=== PATIENT | female | born 1945 | race Caucasian/White ===

== ENCOUNTER 2018-05-15 17:54 | Emergency (ER) | payer MEDICARE, OTHER, MEDICAID ==
[2018-05-15 18:02] VITALS: BP 189/103
--- NOTE | 2018-05-15 18:45 | EDM.PDOC ---
ED HPI GENERAL MEDICAL PROBLEM - General Chief Complaint: General Stated Complaint: ILLNESS NORTH TO ER Time Seen by Provider: 05/15/18 18:20 Source of Information: Reports: Patient, EMS, Family, Intermediate Records History Limitations: Reports: Altered Mental Status - History of Present Illness INITIAL COMMENTS - FREE TEXT/NARRATIVE: 72-year-old female who is residing at [facility] receiving chemotherapy for metastatic lung cancer was found with marked decreased responsiveness this afternoon. They were unable to wake her so called the ambulance. EMS did get a response to pain, and when she arrived to the emergency room she was aware of her surroundings but still displaying disinterest in her surroundings. I sat at her bedside and talked with her, and she opened her eyes and started visiting with me. There seemed to be a strong psychological overlay to her symptoms. She was not complaining of any headache, shortness of breath, illness, weakness or other concern. She said she was just "tired". Glucose was checked by EMS and was normal. Onset: Unknown/Unsure Associated Symptoms: Reports: Weakness. Denies: Chest Pain, Cough, Fever/Chills , Nausea/Vomiting, Shortness of Breath Denies Pain Score (Numeric/FACES): 0 - Related Data Allergies Allergy/AdvReac Type Severity Reaction Status Date / Time No Known Allergies Allergy Verified 05/15/18 18:13 Home Meds: Home Meds Aspirin 81 mg PO DAILY 05/09/16 [History] Calcium Carbonate/Vitamin D3 [Calcium Carbonate/Vitamin D 1250 MG-200 Unit] 1 tab PO TID 05/09/16 [History] Cyanocobalamin (Vitamin B-12) [B-12] 1,000 mcg PO DAILY 05/09/16 [History] Metoprolol Tartrate 100 mg PO BID 05/09/16 [History] [place]-3/DHA/Epa/Fish Oil [[place] 3 500 Softgel] 2 cap PO DAILY 05/09/16 [History] Simvastatin 20 mg PO DAILY 05/09/16 [History] amLODIPine Besylate [Amlodipine Besylate] 10 mg PO DAILY 05/09/16 [History] Sulfamethoxazole/Trimethoprim [Sulfamethoxazole-Tmp Ds Tablet] 1 tab PO BID 11/22 [History] Past Medical History HEENT History: Reports: Impaired Vision Cardiovascular History: Reports: High Cholesterol, Hypertension Gastrointestinal History: Reports: Other (See Below) Other Gastrointestinal History: reflux Genitourinary History: Reports: Retention, Urinary, Urinary Incontinence, UTI, Recurrent 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: Dysfunctional Uterine Bleeding, Musculoskeletal History: Reports: Other (See Below) Other Musculoskeletal History: right shoulder chronic pain Psychiatric History: Reports: Dementia, Depression Endocrine/Metabolic History: Reports: Diabetes, Type II Oncologic (Cancer) History: Reports: Lung - Infectious Disease History Infectious Disease History: Reports: Chicken Pox, Measles, Pertussis (Whooping Cough) - Past Surgical History HEENT Surgical History: Reports: Cataract Surgery Respiratory Surgical History: Reports: Other (See Below) Other Respiratory Surgeries/Procedures: small cell lung CA Social & Family History - Tobacco Use Smoking Status *Q: Former Smoker Years of Tobacco use: 55 Packs/Tins Daily: 2 Used Tobacco, but Quit: Yes Month/Year Tobacco Last Used: 06/16/2016 Second Hand Smoke Exposure: No - Caffeine Use Caffeine Use: Reports: Coffee - Alcohol Use Days Per Week of Alcohol Use: 0 - Recreational Drug Use Recreational Drug Use: No ED ROS GENERAL - Review of Systems Review Of Systems: See Below Constitutional: Denies: Fever, Chills HEENT: Reports: No Symptoms Respiratory: Denies: Shortness of Breath, Cough Cardiovascular: Denies: Chest Pain GI/Abdominal: Denies: Abdominal Pain, Nausea, Vomiting Skin: Denies: Rash Neurological: Denies: Confusion, Headache Psychiatric: Reports: Other (Very flat affect, seems depressed) ED EXAM, GENERAL - Physical Exam Exam: See Below Exam Limited By: No Limitations General Appearance: Alert, No Apparent Distress Eye Exam: Bilateral Eye: EOMI Throat/Mouth: Normal Inspection Head: Atraumatic, Normocephalic Neck: Normal Inspection Respiratory/Chest: No Respiratory Distress, Lungs Clear Cardiovascular: Regular Rate, Rhythm GI/Abdominal: Soft, Non-Tender Extremities: No: Pedal Edema Neurological: Alert (Patient became alert while I was talking to her) Psychiatric: Depressed Mood, Flat Affect Skin Exam: Warm, Dry Course - Vital Signs Last Recorded V/S: Last Vital Signs Temp 98.1 F 05/15/18 18:12 Pulse 80 05/15/18 18:12 Resp 12 05/15/18 18:12 BP 189/103 H 05/15/18 18:12 Pulse Ox 96 05/15/18 18:12 - Orders/Labs/Meds Orders: Active Orders 24 hr Category Date Time Status Head wo Cont [CT] Stat Exams 05/15/18 18:21 Taken - Re-Assessments/Exams Free Text/Narrative Re-Assessment/Exam: 05/15/18 18:46 The family arrived and she saw her from across the emergency room and lifted her hand and pointed and said "there is my " she wanted to talk to him before any tests were done. I talked with the family after they left the room and they said they thought she "seemed fine, maybe just needed a bloody Niesha". They did agree to a head CT. If this is negative we'll [facility]. 05/15/18 18:[address] was negative for acute findings. The patient moved from the cot to the CT bed with just a small amount of assistance. [facility] was [facility]. She can return if she develops a fever or other symptoms but the family is comfortable with this plan. Departure - Departure Time of Disposition: 19:19 Disposition: DC/Tfer to [facility] Condition: Good Clinical Impression: Mental status, decreased Lung cancer Qualifiers: Laterality: unspecified laterality Lung location: unspecified part of lung Qualified Code(s): C34.90 - Malignant neoplasm of unspecified part of unspecified bronchus or lung - Discharge Information Instructions: Lung Cancer Referrals: PCP,None [Primary Care Provider] - Forms: ED Department Discharge Care Plan Goals: Continue current medications and activity as tolerated. Return if other concerns develop such as fever or shortness of breath. - My Orders Last 24 Hours: My Active Orders 05/15/18 18:21 Head wo Cont [CT] Stat - Assessment/Plan Last 24 Hours: My Active Orders 05/15/18 18:21 Head wo Cont [CT] Stat
== END 2018-05-15 19:19 ==
LOC: JP.ED 17:54
DX: C34.90 Malignant neoplasm of unspecified part of unspecified bronchus or lung (principal); F99 Mental disorder, not otherwise specified; E78.00 Pure hypercholesterolemia, unspecified; I10 Essential (primary) hypertension; Z79.82 Long term (current) use of aspirin; Z79.899 Other long term (current) drug therapy; Z87.891 Personal history of nicotine dependence
CPT/HCPCS: 70450; 99283; 99285-25

== ENCOUNTER 2018-08-20 08:28 | Inpatient (IN) | payer MEDICARE, OTHER, MEDICAID ==
[2018-08-20] MEDS ORDERED: cefTRIAXone 1 GM Vial IV SCH (09:00)
[2018-08-20] MEDS ORDERED: Lactated Ringers 1,000 ML IV SCH (09:00)
[2018-08-20] MEDS ORDERED: Sodium Chloride 0.9% 10 ML Syringe FLUSH PRN (09:09)
--- NOTE | 2018-08-20 09:09 | EDM.PDOC ---
ED HPI GENERAL MEDICAL PROBLEM - General Chief Complaint: General Stated Complaint: VIA NORTH Time Seen by Provider: 08/20/18 09:06 Source of Information: Reports: Patient, Old Records, RN Notes Reviewed History Limitations: Reports: No Limitations - History of Present Illness INITIAL COMMENTS - FREE TEXT/NARRATIVE: 72-year-old female presents emergency department day from [facility] with increased confusion, she has a known history of non-small cell lung cancer as well as diabetes mellitus type 2 and dementia was recently diagnosed with urinary tract infection started on ciprofloxacin cultures does show greater than 100,000 Escherichia coli which is sensitive ciprofloxacin. Difficult to obtain a review of systems and history and she is more confused with her speech difficulty follow - Related Data Allergies Allergy/AdvReac Type Severity Reaction Status Date / Time No Known Allergies Allergy Verified 05/15/18 18:13 Home Meds: Home Meds Aspirin 81 mg PO DAILY 05/09/16 [History] Calcium Carbonate/Vitamin D3 [Calcium Carbonate/Vitamin D 1250 MG-200 Unit] 1 tab PO TID 05/09/16 [History] Cyanocobalamin (Vitamin B-12) [B-12] 1,000 mcg PO DAILY 05/09/16 [History] Metoprolol Tartrate 75 mg PO BID 05/09/16 [History] [place]-3/DHA/Epa/Fish Oil [[place] 3 500 Softgel] 2 cap PO DAILY 05/09/16 [History] Simvastatin 20 mg PO DAILY 05/09/16 [History] amLODIPine Besylate [Amlodipine Besylate] 10 mg PO DAILY 05/09/16 [History] Acetaminophen [Acetaminophen 8 Hour] 650 mg PO TID 08/20/18 [History] Baclofen 10 mg PO TID 08/20/18 [History] Cholecalciferol (Vitamin D3) [Vitamin D3] 1,000 unit PO DAILY 08/20/18 [History] Ciprofloxacin [Ciprofloxacin HCl] 500 mg PO BID 08/20/18 [History] Famotidine 20 mg PO BID 08/20/18 [History] Gabapentin [Neurontin] 300 mg PO TID 08/20/18 [History] Lactose-Reduced Food [Ensure Active Clear] 1 carton PO BID 08/20/18 [History] Ondansetron [Zofran ODT] 4 mg PO DAILY 08/20/18 [History] Polyethylene Glycol 3350 [MiraLAX] 17 gm PO DAILY 08/20/18 [History] Sucralfate 1 gm PO BID 08/20/18 [History] Past Medical History HEENT History: Reports: Impaired Vision Cardiovascular History: Reports: High Cholesterol, Hypertension Gastrointestinal History: Reports: GERD Other Gastrointestinal History: reflux Genitourinary History: Reports: Retention, Urinary, Urinary Incontinence, UTI, Recurrent 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: Dysfunctional Uterine Bleeding, Musculoskeletal History: Reports: Other (See Below) Other Musculoskeletal History: right shoulder chronic pain Psychiatric History: Reports: Dementia, Depression Endocrine/Metabolic History: Reports: Diabetes, Type II Oncologic (Cancer) History: Reports: Lung - Infectious Disease History Infectious Disease History: Reports: Chicken Pox, Measles, Pertussis (Whooping Cough) - Past Surgical History HEENT Surgical History: Reports: Cataract Surgery Respiratory Surgical History: Reports: Other (See Below) Other Respiratory Surgeries/Procedures: small cell lung CA Social & Family History - Tobacco Use Smoking Status *Q: Unknown Ever Smoked - Caffeine Use Caffeine Use: Reports: Coffee ED ROS GENERAL - Review of Systems Review Of Systems: Unable To Obtain ED EXAM, GENERAL - Physical Exam Exam: See Below Free Text/Narrative:: General: Female, not in any distress however difficult to hold a conversation and is confused, alert HEENT: head is atraumatic normocephalic, eyes pupils equal round reactive to light, sclera clear no conjunctivitis appreciated. Ears tympanic membranes clear and elam landmarks and light reflex are present bilaterally canals are clear. Nose no septal deviation, nares are clear, no blood present. Mouth mucosa is moist and pink no erythema or exudate noted in soft palate, tongue is midline uvula is midline, dentition is intact. Neck: Supple no thyromegaly no tracheal deviation. Nodes: Cervical nodes subclavicular nodes nontender no palpable lymphadenopathy noted. Lungs: clear to auscultation bilaterally with symmetrical respirations, no adventitious noise appreciated. CV: Regular rate and rhythm S1 and S2 appreciated no murmurs rubs or gallops noted. Abdomen: Soft, nontender, no palpable masses or organomegaly appreciated, no distention no guarding bowel sounds are present,. Neuro: GCS of 15 cranial nerves II through XII intact Skin: Warm and dry, intact Extremities: No lower extremity edema appreciated, pedal pulse is +2. Course - Vital Signs Last Recorded V/S: Last Vital Signs Temp 97.4 F 08/20/18 08:47 Pulse 120 H 08/20/18 13:00 Resp 10 L 08/20/18 13:00 BP 146/85 H 08/20/18 13:00 Pulse Ox 100 08/20/18 13:00 - Orders/Labs/Meds Orders: Active Orders 24 hr Category Date Time Status Peripheral IV Care [RC] . DIRECTED Care 08/20/18 09:09 Active Vital Signs [RC] Q1H Care 08/20/18 09:00 Active CULTURE BLOOD [BC] Urgent Lab 08/20/18 09:00 Ordered CULTURE BLOOD [BC] Urgent Lab 08/20/18 09:25 Received Sodium Chloride 0.9% [Normal Saline] 1,000 ml Med 08/20/18 09:15 Active IV ASDIRECTED Sodium Chloride 0.9% [Normal Saline] 1,000 ml Med 08/20/18 14:00 Active IV ASDIRECTED Sodium Chloride 0.9% [Saline Flush] Med 08/20/18 09:09 Active 10 ml FLUSH ASDIRECTED PRN Blood Culture x2 Reflex Set [OM.PC] Urgent Oth 08/20/18 09:00 Ordered Peripheral IV Insertion Adult [OM.PC] Urgent Oth 08/20/18 09:09 Ordered Medication Orders Sodium Chloride (Normal Saline) 1,000 mls @ 999 mls/hr IV ASDIRECTED PRETTY Last Admin: 08/20/18 09:26 Dose: 999 mls/hr Sodium Chloride (Normal Saline) 1,000 mls @ 500 mls/hr IV ASDIRECTED PRETTY Stop: 08/20/18 16:01 Sodium Chloride (Saline Flush) 10 ml FLUSH ASDIRECTED PRN PRN Reason: Keep Vein Open Last Admin: 08/20/18 09:26 Dose: 10 ml Labs: Laboratory Tests 08/20/18 08/20/18 08/20/18 Range/Units 09:20 09:20 09:20 WBC 7.9 (4.5-11.0) K/uL RBC 4.43 (3.30-5.50) M/uL Hgb 12.9 (12.0-15.0) g/dL Hct 42.4 (36.0-48.0) % MCV 96 (80-98) fL MCH 29 (27-31) pg MCHC 30 L (32-36) % Plt Count 276 (150-400) K/uL Neut % (Auto) 84 H (36-66) % Lymph % (Auto) 8 L (24-44) % Giles % (Auto) 7 H (2-6) % Eos % (Auto) 0 L (2-4) % Baso % (Auto) 0 (0-1) % Puncture Site ABG pH (7.350-7.450) ABG pCO2 (35.0-42.0) mmHg ABG pO2 (75.0-100.0) mmHg ABG HCO3 (22.0-26.0) mmol/L ABG Total CO2 (21.0-25.0) mmol/L ABG O2 Saturation (95.0-98.0) % ABG O2 Content (15.0-23.0) %vol ABG Base Excess mm/L ABG Hemoglobin (12.0-16.0) g/dL ABG Oxyhemoglobin % ABG Carboxyhemoglobin (0.0-1.6) % ABG Methemoglobin % Thony Test O2 Delivery Device Oxygen Flow Rate L Sodium 142 (140-148) mmol/L Potassium 3.4 L (3.6-5.2) mmol/L Chloride 103 (100-108) mmol/L Carbon Dioxide 27 (21-32) mmol/L Anion Gap 15.4 H (5.0-14.0) mmol/L BUN 16 (7-18) mg/dL Creatinine 0.9 (0.6-1.0) mg/dL Est Cr Clr Drug Dosing 45.36 mL/min Estimated GFR (MDRD) > 60 (>60) Glucose 125 H (74-106) mg/dL Lactic Acid 1.3 (0.4-2.0) mmol/L Calcium 9.0 (8.5-10.1) mg/dL Total Bilirubin 0.7 (0.2-1.0) mg/dL AST 15 (15-37) U/L ALT 17 (12-78) U/L Alkaline Phosphatase 56 (46-116) U/L C-Reactive Protein 0.38 H (0.0-0.3) mg/dL Total Protein 6.9 (6.4-8.2) g/dL Albumin 3.4 (3.4-5.0) g/dL Globulin 3.5 (2.3-3.5) g/dL Albumin/Globulin Ratio 1.0 L (1.2-2.2) Urine Color Urine Appearance Urine pH (4.5-8.0) Ur Specific [place] (1.008-1.030) Urine Protein (NEGATIVE) mg/dL Urine Glucose (UA) (NEGATIVE) mg/dL Urine Ketones (NEGATIVE) mg/dL Urine Occult Blood (NEGATIVE) Urine Nitrite (NEGATIVE) Urine Bilirubin (NEGATIVE) Urine Urobilinogen (NORMAL) mg/dL Ur Leukocyte Esterase (NEGATIVE) Urine RBC (0-5) Urine WBC (0-5) Ur Epithelial Cells Amorphous Sediment Urine Bacteria Urine Mucus 08/20/18 08/20/18 Range/Units 09:37 09:44 WBC (4.5-11.0) K/uL RBC (3.30-5.50) M/uL Hgb (12.0-15.0) g/dL Hct (36.0-48.0) % MCV (80-98) fL MCH (27-31) pg MCHC (32-36) % Plt Count (150-400) K/uL Neut % (Auto) (36-66) % Lymph % (Auto) (24-44) % Giles % (Auto) (2-6) % Eos % (Auto) (2-4) % Baso % (Auto) (0-1) % Puncture Site Lt radial ABG pH 7.318 L (7.350-7.450) ABG pCO2 49.2 H (35.0-42.0) mmHg ABG pO2 46.6 L (75.0-100.0) mmHg ABG HCO3 24.5 (22.0-26.0) mmol/L ABG Total CO2 22.6 (21.0-25.0) mmol/L ABG O2 Saturation 74.2 L (95.0-98.0) % ABG O2 Content 12.9 L (15.0-23.0) %vol ABG Base Excess -1.5 mm/L ABG Hemoglobin 12.6 (12.0-16.0) g/dL ABG Oxyhemoglobin 73.2 % ABG Carboxyhemoglobin 0.5 (0.0-1.6) % ABG Methemoglobin 0.9 % Thony Test Passed O2 Delivery Device Nasal cannula Oxygen Flow Rate L Sodium (140-148) mmol/L Potassium (3.6-5.2) mmol/L Chloride (100-108) mmol/L Carbon Dioxide (21-32) mmol/L Anion Gap (5.0-14.0) mmol/L BUN (7-18) mg/dL Creatinine (0.6-1.0) mg/dL Est Cr Clr Drug Dosing mL/min Estimated GFR (MDRD) (>60) Glucose (74-106) mg/dL Lactic Acid (0.4-2.0) mmol/L Calcium (8.5-10.1) mg/dL Total Bilirubin (0.2-1.0) mg/dL AST (15-37) U/L ALT (12-78) U/L Alkaline Phosphatase (46-116) U/L C-Reactive Protein (0.0-0.3) mg/dL Total Protein (6.4-8.2) g/dL Albumin (3.4-5.0) g/dL Globulin (2.3-3.5) g/dL Albumin/Globulin Ratio (1.2-2.2) Urine Color Yellow Urine Appearance Clear Urine pH 5.0 (4.5-8.0) Ur Specific [place] 1.020 (1.008-1.030) Urine Protein Trace (NEGATIVE) mg/dL Urine Glucose (UA) Negative (NEGATIVE) mg/dL Urine Ketones 50 H (NEGATIVE) mg/dL Urine Occult Blood Negative (NEGATIVE) Urine Nitrite Negative (NEGATIVE) Urine Bilirubin Negative (NEGATIVE) Urine Urobilinogen Normal (NORMAL) mg/dL Ur Leukocyte Esterase Negative (NEGATIVE) Urine RBC Not seen (0-5) Urine WBC Not seen (0-5) Ur Epithelial Cells Few Amorphous Sediment Rare Urine Bacteria Not seen Urine Mucus Rare Meds: Medications Generic Name Dose Route Start Last Admin Trade Name Freq PRN Reason Stop Dose Admin Sodium Chloride 1,000 mls @ 999 mls/hr 08/20/18 09:15 08/20/18 09:26 Normal Saline IV 999 mls/hr ASDIRECTED PRETTY Administration Sodium Chloride 1,000 mls @ 500 mls/hr 08/20/18 14:00 Normal Saline IV 08/20/18 16:01 ASDIRECTED PRETTY Sodium Chloride 10 ml 08/20/18 09:09 08/20/18 09:26 Saline Flush FLUSH 10 ml ASDIRECTED PRN Administration Keep Vein Open Discontinued Medications Generic Name Dose Route Start Last Admin Trade Name Freq PRN Reason Stop Dose Admin Lactated Ringer's 1,000 mls @ 125 mls/hr 08/20/18 09:00 Ringers, Lactated IV ASDIRECTED PRETTY Ceftriaxone Sodium 1 gm/ 50 mls @ 100 mls/hr 08/20/18 10:00 08/20/18 10:09 Sodium Chloride IV 08/20/18 10:29 100 mls/hr ONETIME ONE Administration Levetiracetam 500 mg/ Sodium 105 mls @ 400 mls/hr 08/20/18 12:44 08/20/18 13: 42 Chloride IV 08/20/18 12:58 400 mls/hr ONETIME ONE Administration Lorazepam Confirm 08/20/18 12:40 Ativan Administered 08/20/18 12:41 Dose 2 mg .ROUTE .STK-MED ONE Departure - Departure Time of Disposition: 14:10 Disposition: Admitted As Inpatient 64 Condition: Poor Clinical Impression: Seizure - Discharge Information Referrals: Keegan Rodríguez MD [Primary Care Provider] - Forms: ED Department Discharge - My Orders Last 24 Hours: My Active Orders 08/20/18 09:00 Vital Signs [RC] Q1H CULTURE BLOOD [BC] Urgent Blood Culture x2 Reflex Set [OM.PC] Urgent 08/20/18 09:09 Peripheral IV Care [RC] . DIRECTED Sodium Chloride 0.9% [Saline Flush] 10 ml FLUSH ASDIRECTED PRN Peripheral IV Insertion Adult [OM.PC] Urgent 08/20/18 09:15 Sodium Chloride 0.9% [Normal Saline] 1,000 ml IV ASDIRECTED 08/20/18 09:25 CULTURE BLOOD [BC] Urgent - Assessment/Plan Last 24 Hours: My Active Orders 08/20/18 09:00 Vital Signs [RC] Q1H CULTURE BLOOD [BC] Urgent Blood Culture x2 Reflex Set [OM.PC] Urgent 08/20/18 09:09 Peripheral IV Care [RC] . DIRECTED Sodium Chloride 0.9% [Saline Flush] 10 ml FLUSH ASDIRECTED PRN Peripheral IV Insertion Adult [OM.PC] Urgent 08/20/18 09:15 Sodium Chloride 0.9% [Normal Saline] 1,000 ml IV ASDIRECTED 08/20/18 09:25 CULTURE BLOOD [BC] Urgent Plan: Assessment Acuity = acute Site and laterality = new onset seizure, again the patient with known history of small cell lung CA and [facility] placement Etiology = unclear etiology Manifestations = none Location of injury = Home Lab values = CBC unremarkable pH 7.32 PCO2 49.2 PO2 46.6 and a bicarbonate 24.5 probable mixed sample CMP unremarkable urinalysis unremarkable CT scan shows no acute process chest x-ray no acute process Plan Call discuss case hospitalist [employer] certified network professional at 12:30 currently agreed to come and evaluate the patient emergency department for admission This note was dictated using [employer] voice recognition software please call with any questions on syntax or grammar.
[2018-08-20] MEDS ORDERED: Sodium Chloride 0.9% 1,000 ML IV SCH ×3 (09:15→19:00)
[2018-08-20] MEDS ORDERED: cefTRIAXone 1 GM in Sodium Chloride 0.9% 50 ML IV ONE (10:00)
--- NOTE | 2018-08-20 10:44 | CRLCR ---
INDICATION: Hypoxia TECHNIQUE: Single view chest. FINDINGS: Normal cardiac mediastinal silhouette. Right paramediastinal consolidation likely reflecting prior radiation changes. Left Port-A-Cath should with tip in the cavoatrial junction. Low lung volumes. Right hemidiaphragm is elevated. No acute airspace or interstitial process. No effusion. No pneumothorax. IMPRESSION: No acute pulmonary process. Dictated by Genevieve Sorenson MD @ Aug 20 2018 10:41AM Signed by Dr. Genevieve Sorenson @ Aug 20 2018 10:43AM
[2018-08-20] MEDS ORDERED: LORazepam 2 MG/ML SDV ONE (12:40)
[2018-08-20] MEDS ORDERED: levETIRAcetam 500 MG in Sodium Chloride 0.9% 100 ML IV ONE (12:44)
--- NOTE | 2018-08-20 12:59 | CRLCT ---
INDICATION: Acute mental status changes. CT head without IV contrast burped. COMPARISON: CT head 05/15/2018. FINDINGS: Significant motion artifact hampers portions of this exam. The medical technologist microbiology repeated the head CT twice. Moderately prominent small vessel ischemic disease is mildly more prominent. Mild cerebral and mild to moderate cerebellar atrophy stable. Remainder negative. IMPRESSION: 1. Significant motion artifact degrades this study. 2. No acute intracranial disease. 3. Moderate chronic intracranial disease with small-vessel ischemic disease progressing mildly Please note that all CT scans at this facility use dose modulation, iterative reconstruction, and/or weight-based dosing when appropriate to reduce radiation dose to as low as reasonably achievable. Dictated by Clifford Foster MD @ Aug 20 2018 12:56PM Signed by Dr. Clifford Foster @ Aug 20 2018 12:58PM
--- NOTE | 2018-08-20 13:34 | CRLCT ---
INDICATION: Patient had a seizure after CT done earlier today. TECHNIQUE: CT head without IV contrast. COMPARISON: CT head earlier today. FINDINGS: Moderate intracranial vascular calcifications. No intracranial hemorrhage, edema, or mass effect. Moderately prominent low-density change in the white matter both cerebral hemispheres greatest in the frontal regions persists and is consistent with small vessel ischemic disease. Mild to moderate cerebral atrophy and moderate cerebellar atrophy. Remainder negative. IMPRESSION: No change from earlier today. No acute intracranial disease. Chronic intracranial findings as detailed above. Please note that all CT scans at this facility use dose modulation, iterative reconstruction, and/or weight-based dosing when appropriate to reduce radiation dose to as low as reasonably achievable. Dictated by Clifford Foster MD @ Aug 20 2018 1:31PM Signed by Dr. Clifford Foster @ Aug 20 2018 1:32PM
--- NOTE | 2018-08-20 14:28 | PCM.HP ---
H&P History of Present Illness - General Date of Service: 08/20/18 Admit Problem/Dx: Admission Diagnosis/Problem Admission Diagnosis/Problem Seizure Source of Information: Family. No: Patient History Limitations: Reports: Altered Mental Status (dementia and post-ictal) - History of Present Illness Initial Comments - Free Text/Narative: Abigail was sent to the emergency room from a local skilled nursing with increased confusion. I am unable to get any history because of confusion. History is gathered from emergency room personnel and her . residential and emergency room staff have reported progressive confusion over the past 2-3 weeks. They say that normally she can have a conversation and is able to greet staff members by name. She has declined fairly rapidly. They have noticed an increase in difficulty with her dyskinesia with increasing upper and lower limb movements. They have not noticed any fevers but she did have a recent urinary tract infection which has been treated with ciprofloxacin. She had been complaining of a left frontal headache. She is unable to tell me if she has a headache today. This morning nursing staff at the skilled nursing noted she was very lethargic and even more confused than usual so she was sent to the hospital for evaluation. 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 He said that things had been going fairly well up until about 3 weeks ago. Workup in the emergency room initially was fairly reassuring. There is no evidence for infection. She was mildly hypoxic. There was significant motion artifact on the first head CT but we were able to get a second one after her seizure in the emergency room because she was very lethargic afterwards. Again no acute intracranial pathology was identified. I did discuss the case with Dr. Randolph with neurology in [place]. He agreed with the Keppra loading and seizure management with this drug. He recommended a variety of laboratory tests to help workup her encephalopathy. She will be admitted to the intensive care unit for further management. - Related Data Allergies/Adverse Reactions: Allergies Allergy/AdvReac Type Severity Reaction Status Date / Time No Known Allergies Allergy Verified 05/15/18 18:13 Home Medications: Home Meds Aspirin 81 mg PO DAILY 05/09/16 [History] Calcium Carbonate/Vitamin D3 [Calcium Carbonate/Vitamin D 1250 MG-200 Unit] 1 tab PO TID 05/09/16 [History] Cyanocobalamin (Vitamin B-12) [B-12] 1,000 mcg PO DAILY 05/09/16 [History] Metoprolol Tartrate 75 mg PO BID 05/09/16 [History] [place]-3/DHA/Epa/Fish Oil [[place] 3 500 Softgel] 2 cap PO DAILY 05/09/16 [History] Simvastatin 20 mg PO DAILY 05/09/16 [History] amLODIPine Besylate [Amlodipine Besylate] 10 mg PO DAILY 05/09/16 [History] Acetaminophen [Acetaminophen 8 Hour] 650 mg PO TID 08/20/18 [History] Baclofen 10 mg PO TID 08/20/18 [History] Cholecalciferol (Vitamin D3) [Vitamin D3] 1,000 unit PO DAILY 08/20/18 [History] Ciprofloxacin [Ciprofloxacin HCl] 500 mg PO BID 08/20/18 [History] Famotidine 20 mg PO BID 08/20/18 [History] Gabapentin [Neurontin] 300 mg PO TID 08/20/18 [History] Lactose-Reduced Food [Ensure Active Clear] 1 carton PO BID 08/20/18 [History] Ondansetron [Zofran ODT] 4 mg PO DAILY 08/20/18 [History] Polyethylene Glycol 3350 [MiraLAX] 17 gm PO DAILY 08/20/18 [History] Sucralfate 1 gm PO BID 08/20/18 [History] Past Medical History HEENT History: Reports: Impaired Vision Cardiovascular History: Reports: High Cholesterol, Hypertension Gastrointestinal History: Reports: GERD Other Gastrointestinal History: reflux Genitourinary History: Reports: Retention, Urinary, Urinary Incontinence, UTI, Recurrent FREELANCE DATA ENTRY History: Reports: Dysfunctional Uterine Bleeding, Musculoskeletal History: Reports: Other (See Below) Other Musculoskeletal History: right shoulder chronic pain Psychiatric History: Reports: Dementia, Depression Endocrine/Metabolic History: Reports: Diabetes, Type II Oncologic (Cancer) History: Reports: Lung - Infectious Disease History Infectious Disease History: Reports: Chicken Pox, Measles, Pertussis (Whooping Cough) - Past Surgical History HEENT Surgical History: Reports: Cataract Surgery Respiratory Surgical History: Reports: Other (See Below) Other Respiratory Surgeries/Procedures: small cell lung CA Social & Family History - Family History Family Medical History: Unobtainable (Post ictal) - Tobacco Use Smoking Status *Q: Unknown Ever Smoked - Caffeine Use Caffeine Use: Reports: Coffee - Alcohol Use Alcohol Use History: No H&P Review of Systems - Review of Systems: Review Of Systems: Unable To Obtain (Patient has dementia and is unable to answer questions and later was postictal) Exam - Exam Exam: See Below - Vital Signs Vital Signs: Last Vital Signs Temp 36.3 C 08/20/18 08:47 Pulse 120 H 08/20/18 13:00 Resp 10 L 08/20/18 13:00 BP 146/85 H 08/20/18 13:00 Pulse Ox 100 08/20/18 13:00 Weight: 61.235 kg - Exam Quality Assessment: Supplemental Oxygen General: Alert. No: Oriented, Cooperative, Mild Distress HEENT: Conjunctiva Clear. No: Mucosa Moist & Sharpes (dry), Scleral Icterus Neck: Supple, Trachea Midline. No: Lymphadenopathy, Thyromegaly Lungs: Clear to Auscultation, Normal Respiratory Effort Cardiovascular: Regular Rhythm, Tachycardia. No: Systolic Murmur GI/Abdominal Exam: Normal Bowel Sounds, Soft, Non-Tender, No Distention Back Exam: Normal Inspection, Full Range of Motion Extremities: No Pedal Edema. No: Increased Warmth Peripheral Pulses: 2+: Dorsalis Pedis (L), Dorsalis Pedis (R) Skin: Warm, Dry Neuro Extensive - Mental Status: Alert, Disorientation to Place, Disorientation to Time, Inattentive, Memory Loss-Remote Events, Memory Loss-Recent Events. No : Oriented x3, Slow Response to Commands (Report) Neuro Extensive - Motor, Sensory, Reflexes: Normal Reflexes, Abnormal Motor ( Dyskinesia). No: Dysarthria, Hemeplagia (R), Hemeplagia (L), Tremor DTR: 1+: Bicep (L), Bicep (R), Patella (L), Patella (R) Psychiatric: Alert, Anxious - Patient Data Lab Results Last 24 hrs: Laboratory Results - last 24 hr 08/20/18 08/20/18 08/20/18 Range/Units 09:20 09:20 09:20 WBC 7.9 (4.5-11.0) K/uL RBC 4.43 (3.30-5.50) M/uL Hgb 12.9 (12.0-15.0) g/dL Hct 42.4 (36.0-48.0) % MCV 96 (80-98) fL MCH 29 (27-31) pg MCHC 30 L (32-36) % Plt Count 276 (150-400) K/uL Neut % (Auto) 84 H (36-66) % Lymph % (Auto) 8 L (24-44) % Boyd % (Auto) 7 H (2-6) % Eos % (Auto) 0 L (2-4) % Baso % (Auto) 0 (0-1) % Puncture Site ABG pH (7.350-7.450) ABG pCO2 (35.0-42.0) mmHg ABG pO2 (75.0-100.0) mmHg ABG HCO3 (22.0-26.0) mmol/L ABG Total CO2 (21.0-25.0) mmol/L ABG O2 Saturation (95.0-98.0) % ABG O2 Content (15.0-23.0) %vol ABG Base Excess mm/L ABG Hemoglobin (12.0-16.0) g/dL ABG Oxyhemoglobin % ABG Carboxyhemoglobin (0.0-1.6) % ABG Methemoglobin % Thony Test O2 Delivery Device Oxygen Flow Rate L Sodium 142 (140-148) mmol/L Potassium 3.4 L (3.6-5.2) mmol/L Chloride 103 (100-108) mmol/L Carbon Dioxide 27 (21-32) mmol/L Anion Gap 15.4 H (5.0-14.0) mmol/L BUN 16 (7-18) mg/dL Creatinine 0.9 (0.6-1.0) mg/dL Est Cr Clr Drug Dosing 45.36 mL/min Estimated GFR (MDRD) > 60 (>60) Glucose 125 H (74-106) mg/dL Lactic Acid 1.3 (0.4-2.0) mmol/L Calcium 9.0 (8.5-10.1) mg/dL Total Bilirubin 0.7 (0.2-1.0) mg/dL AST 15 (15-37) U/L ALT 17 (12-78) U/L Alkaline Phosphatase 56 (46-116) U/L C-Reactive Protein 0.38 H (0.0-0.3) mg/dL Total Protein 6.9 (6.4-8.2) g/dL Albumin 3.4 (3.4-5.0) g/dL Globulin 3.5 (2.3-3.5) g/dL Albumin/Globulin Ratio 1.0 L (1.2-2.2) Urine Color Urine Appearance Urine pH (4.5-8.0) Ur Specific [place] (1.008-1.030) Urine Protein (NEGATIVE) mg/dL Urine Glucose (UA) (NEGATIVE) mg/dL Urine Ketones (NEGATIVE) mg/dL Urine Occult Blood (NEGATIVE) Urine Nitrite (NEGATIVE) Urine Bilirubin (NEGATIVE) Urine Urobilinogen (NORMAL) mg/dL Ur Leukocyte Esterase (NEGATIVE) Urine RBC (0-5) Urine WBC (0-5) Ur Epithelial Cells Amorphous Sediment Urine Bacteria Urine Mucus 08/20/18 08/20/18 Range/Units 09:37 09:44 WBC (4.5-11.0) K/uL RBC (3.30-5.50) M/uL Hgb (12.0-15.0) g/dL Hct (36.0-48.0) % MCV (80-98) fL MCH (27-31) pg MCHC (32-36) % Plt Count (150-400) K/uL Neut % (Auto) (36-66) % Lymph % (Auto) (24-44) % Boyd % (Auto) (2-6) % Eos % (Auto) (2-4) % Baso % (Auto) (0-1) % Puncture Site Lt radial ABG pH 7.318 L (7.350-7.450) ABG pCO2 49.2 H (35.0-42.0) mmHg ABG pO2 46.6 L (75.0-100.0) mmHg ABG HCO3 24.5 (22.0-26.0) mmol/L ABG Total CO2 22.6 (21.0-25.0) mmol/L ABG O2 Saturation 74.2 L (95.0-98.0) % ABG O2 Content 12.9 L (15.0-23.0) %vol ABG Base Excess -1.5 mm/L ABG Hemoglobin 12.6 (12.0-16.0) g/dL ABG Oxyhemoglobin 73.2 % ABG Carboxyhemoglobin 0.5 (0.0-1.6) % ABG Methemoglobin 0.9 % Thony Test Passed O2 Delivery Device Nasal cannula Oxygen Flow Rate L Sodium (140-148) mmol/L Potassium (3.6-5.2) mmol/L Chloride (100-108) mmol/L Carbon Dioxide (21-32) mmol/L Anion Gap (5.0-14.0) mmol/L BUN (7-18) mg/dL Creatinine (0.6-1.0) mg/dL Est Cr Clr Drug Dosing mL/min Estimated GFR (MDRD) (>60) Glucose (74-106) mg/dL Lactic Acid (0.4-2.0) mmol/L Calcium (8.5-10.1) mg/dL Total Bilirubin (0.2-1.0) mg/dL AST (15-37) U/L ALT (12-78) U/L Alkaline Phosphatase (46-116) U/L C-Reactive Protein (0.0-0.3) mg/dL Total Protein (6.4-8.2) g/dL Albumin (3.4-5.0) g/dL Globulin (2.3-3.5) g/dL Albumin/Globulin Ratio (1.2-2.2) Urine Color Yellow Urine Appearance Clear Urine pH 5.0 (4.5-8.0) Ur Specific [place] 1.020 (1.008-1.030) Urine Protein Trace (NEGATIVE) mg/dL Urine Glucose (UA) Negative (NEGATIVE) mg/dL Urine Ketones 50 H (NEGATIVE) mg/dL Urine Occult Blood Negative (NEGATIVE) Urine Nitrite Negative (NEGATIVE) Urine Bilirubin Negative (NEGATIVE) Urine Urobilinogen Normal (NORMAL) mg/dL Ur Leukocyte Esterase Negative (NEGATIVE) Urine RBC Not seen (0-5) Urine WBC Not seen (0-5) Ur Epithelial Cells Few Amorphous Sediment Rare Urine Bacteria Not seen Urine Mucus Rare Result Diagrams: 08/20/18 09:20 08/20/18 09:20 Imaging Impressions Last 24 hrs: Chest x-ray - images personally reviewed - lungs are clear with no mass, infiltrate or effusion. There appears to be some scarring medially in the left upper chest near the mediastinum. She has a Port-A-Cath in place. Head CT - 2 procedures were completed and both of these were reviewed - the first CT was limited by motion artifact. Second CT was of good quality and did not show any acute findings. Both showed chronic small vessel ischemic disease. *Q Meaningful Use (ADM) - VTE Risk Assess *Q Each Risk Factor Represents 1 Point: None Total Score 1 Point Risk Factors: 0 Each Risk Factor Represents 2 Points: Age 60 - 74 Years, Malignancy (present or previous) Total Score 2 Point Risk Factors: 4 Each Risk Factor Represents 3 Points: None Total Score 3 Point Risk Factors: 0 Each Risk Factor Represents 5 Points: None Total Score 5 Point Risk Factors: 0 Venous Thromboembolism Risk Factor Score *Q: 4 - Problem List (1) Seizure SNOMED Code(s): 11955600 ICD Code: R56.9 - UNSPECIFIED CONVULSIONS Status: Acute Current Visit: Yes (2) Acute hyperactive delirium due to another medical condition SNOMED Code(s): 6451347, 550038787, 781851257 ICD Code: F05 - DELIRIUM DUE TO KNOWN PHYSIOLOGICAL CONDITION Status: Acute Current Visit: Yes (3) Dyskinesia SNOMED Code(s): 4717421 ICD Code: G24.9 - DYSTONIA, UNSPECIFIED Status: Acute Current Visit: Yes (4) Hypokalemia SNOMED Code(s): 22555727 ICD Code: E87.6 - HYPOKALEMIA Status: Acute Current Visit: Yes (5) Lung cancer SNOMED Code(s): 299599273 ICD Code: C34.90 - MALIGNANT NEOPLASM OF UNSP PART OF UNSP BRONCHUS OR LUNG Status: Chronic Current Visit: No Qualifiers: Laterality: right Lung location: hilum of lung Qualified Code(s): C34.01 - Malignant neoplasm of right main bronchus Problem List Initiated/Reviewed/Updated: Yes Orders Last 24hrs: Active Orders 24 hr Category Date Time Status Patient Status Manage Transfer [TRANSFER] Routine ADT 08/20/18 14:11 Ordered Peripheral IV Care [RC] . DIRECTED Care 08/20/18 09:09 Active Vital Signs [RC] Q1H Care 08/20/18 09:00 Active CULTURE BLOOD [BC] Urgent Lab 08/20/18 09:00 Ordered CULTURE BLOOD [BC] Urgent Lab 08/20/18 09:25 Received FOLATE [FOLIC ACID] [CHEM] Stat Lab 08/20/18 14:08 Ordered HGB [HEMOGLOBIN] [HEME] AM Lab 08/21/18 05:11 Ordered TSH ULTRASENSITIVE [CHEM] Stat Lab 08/20/18 14:08 Ordered VITAMIN B12 [CHEM] Stat Lab 08/20/18 14:08 Ordered Sodium Chloride 0.9% [Normal Saline] 1,000 ml Med 08/20/18 09:15 Active IV ASDIRECTED Sodium Chloride 0.9% [Normal Saline] 1,000 ml Med 08/20/18 14:00 Active IV ASDIRECTED Sodium Chloride 0.9% [Saline Flush] Med 08/20/18 09:09 Active 10 ml FLUSH ASDIRECTED PRN Blood Culture x2 Reflex Set [OM.PC] Urgent Oth 08/20/18 09:00 Ordered Peripheral IV Insertion Adult [OM.PC] Urgent Oth 08/20/18 09:09 Ordered Resuscitation Status Routine Resus Stat 08/20/18 14:14 Ordered Medication Orders Sodium Chloride (Normal Saline) 1,000 mls @ 999 mls/hr IV ASDIRECTED PRETTY Last Admin: 08/20/18 09:26 Dose: 999 mls/hr Sodium Chloride (Normal Saline) 1,000 mls @ 500 mls/hr IV ASDIRECTED PRETTY Stop: 08/20/18 16:01 Sodium Chloride (Saline Flush) 10 ml FLUSH ASDIRECTED PRN PRN Reason: Keep Vein Open Last Admin: 08/20/18 09:26 Dose: 10 ml Assessment/Plan Comment:: ASSESSMENT AND PLAN - Seizure - witnessed generalized tonic-clonic seizure. No history of seizures. She is postictal at this time. Head CT unremarkable. Recent MRI was unremarkable. Case was discussed with neurology as mentioned in the history of present illness. -Keppra loading dose now and continue every 12 hours -Seizure precautions -Lorazepam as needed for breakthrough seizures -MRI with and without gadolinium in the morning Hyperactive delirium - fairly rapid progression over the past couple of weeks. Although rare consideration for paraneoplastic encephalopathy could be considered. 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 No evidence for infection at this time. -TSH, B-12, folate and paraneoplastic panel Dyskinesia - Patient noted to have poorly controlled and possibly involuntary arm movements and leg movements. This has previously been noted in oncology notes but seems to be more intense today than usual per her 's report. -Continue home medications -Additional management as above Hypokalemia - Mild and will be supplemented. Dementia without behavioral disturbance - patient carries a history of very mild dementia but normally is able to communicate and recognize people. Encounter for palliative care - per 's report the patient has had a significant decline in her functional status and quality of life. He is not interested in aggressive interventions at this time. He is interested in trying to manage things locally if at all possible to avoid travel. Maintenance issues - - DVT prophylaxis - enoxaparin - GI prophylaxis - not indicated - Nutrition - clear liquids until more alert - Dangelo catheter - will be placed for intake and output monitoring CODE STATUS - DNR/DNI - discussed with her Admission justification - This patient will be admitted for inpatient services and is medically appropriate meeting medical necessity for inpatient admission as outlined in my documentation. I reasonably expect the patient will require inpatient services that span a period time over 2 midnights. I reasonably expect this patient to be discharged or transferred within 96 hours after admission to the Critical [facility]. Disposition - I would anticipate discharge back to the skilled nursing after the hospital stay Primary care physician - Dr. Marcos Bishop M.D.
[2018-08-20] MEDS ORDERED: Ondansetron 4 MG Tab.DIS PO PRN (14:43)
[2018-08-20] MEDS ORDERED: Acetaminophen 325 MG Tab PO PRN (14:43)
[2018-08-20] MEDS ORDERED: LORazepam 2 MG/ML SDV IV PRN (14:43)
[2018-08-20] MEDS ORDERED: NS + KCl 20mEq/L 1,000 ML IV SCH (14:43)
[2018-08-20] MEDS ORDERED: Magnesium Hydroxide 400 MG/5 ML Susp 30 ML Cup PO PRN (14:43)
[2018-08-20] MEDS ORDERED: Ondansetron 4 MG/2 ML SDV IV PRN (14:43)
[2018-08-20] MEDS ORDERED: Cyanocobalamin (Vitamin B12) 1,000 MCG/ML SDV SUBCUT ONE (15:31)
[2018-08-20] MEDS: Gabapentin 300 MG Cap PO SCH (20:41)
[2018-08-20] MEDS: Metoprolol Tartrate 25 MG Tab PO SCH (20:41)
[2018-08-20] MEDS: Famotidine 20 MG Tab PO SCH (20:41)
[2018-08-20] MEDS: Baclofen 10 MG Tab PO SCH (20:41)
[2018-08-20] MEDS: Acetaminophen 325 MG Tab PO SCH (20:41)
[2018-08-20] MEDS: Sucralfate 1 GM Tab PO SCH (20:41)
[2018-08-20] MEDS: NS + KCl 20mEq/L 1,000 ML IV SCH (21:21)
[2018-08-21] MEDS ORDERED: levETIRAcetam 500 MG in Sodium Chloride 0.9% 100 ML IV SCH (01:00)
[2018-08-21] MEDS: NS + KCl 20mEq/L 1,000 ML IV SCH (03:28)
[2018-08-21] MEDS: Cyanocobalamin (Vitamin B12) 1,000 MCG Tab PO SCH (08:26)
[2018-08-21] MEDS: Aspirin 81 MG Tab.Chew PO SCH (08:26)
[2018-08-21] MEDS: Baclofen 10 MG Tab PO SCH ×3 (08:26→20:44)
[2018-08-21] MEDS: Sucralfate 1 GM Tab PO SCH ×2 (08:26→20:44)
[2018-08-21] MEDS: Gabapentin 300 MG Cap PO SCH ×3 (08:26→20:43)
[2018-08-21] MEDS: Acetaminophen 325 MG Tab PO SCH ×3 (08:26→20:44)
[2018-08-21] MEDS: amLODIPine 10 MG Tab PO SCH (08:26)
[2018-08-21] MEDS: Famotidine 20 MG Tab PO SCH ×2 (08:26→20:45)
[2018-08-21] MEDS: Enoxaparin 40 MG/0.4 ML Syringe SUBCUT SCH (08:27)
[2018-08-21] MEDS: Metoprolol Tartrate 25 MG Tab PO SCH ×2 (08:27→20:41)
[2018-08-21] MEDS: Polyethylene Glycol 3350 Powder 17 GM Packet PO SCH (08:27)
[2018-08-21] MEDS ORDERED: Potassium Chloride 20 MEQ Tab.ER PO ONE ×2 (09:00→12:00)
[2018-08-21] MEDS ORDERED: LORazepam 2 MG/ML SDV IV PRN (09:29)
--- NOTE | 2018-08-21 09:37 | PCM.PN ---
- General Info Date of Service: 08/21/18 Subjective Update: Ms. Calderon is a 72-year-old woman with a known history of small cell lung cancer. She was found to be lethargic and weak at the half-way, sent to the emergency department for evaluation. After arrival in the emergency department she experienced a tonic-clonic seizure. Lethargy noted early in the day was felt to represent postictal state likely from an unwitnessed seizure. She's been started on Keppra in the emergency department. CT scan of the head without contrast showed no obvious abnormalities. MRI with and without contrast has been scheduled for later this morning. Since admission she has had no further seizure activity. She does have some underlying dementia and is unable to provide a reliable history concerning symptoms or review of systems. - Patient Data Vitals - Most Recent: Last Vital Signs Temp 98.6 F 08/21/18 08:00 Pulse 93 08/21/18 08:27 Resp 16 08/21/18 08:00 BP 155/80 H 08/21/18 08:27 Pulse Ox 96 08/21/18 08:00 Weight - Most Recent: 135 lb I&O - Last 24 Hours: Intake & Output 08/20/18 08/21/18 08/21/18 22:59 06:59 14:59 Intake Total 3405 2177 Balance 3405 2177 Lab Results Last 24 Hours: Laboratory Results - last 24 hr 08/20/18 08/20/18 08/20/18 Range/Units 09:20 09:20 09:20 WBC 7.9 (4.5-11.0) K/uL RBC 4.43 (3.30-5.50) M/uL Hgb 12.9 (12.0-15.0) g/dL Hct 42.4 (36.0-48.0) % MCV 96 (80-98) fL MCH 29 (27-31) pg MCHC 30 L (32-36) % Plt Count 276 (150-400) K/uL Neut % (Auto) 84 H (36-66) % Lymph % (Auto) 8 L (24-44) % Upson % (Auto) 7 H (2-6) % Eos % (Auto) 0 L (2-4) % Baso % (Auto) 0 (0-1) % Puncture Site ABG pH (7.350-7.450) ABG pCO2 (35.0-42.0) mmHg ABG pO2 (75.0-100.0) mmHg ABG HCO3 (22.0-26.0) mmol/L ABG Total CO2 (21.0-25.0) mmol/L ABG O2 Saturation (95.0-98.0) % ABG O2 Content (15.0-23.0) %vol ABG Base Excess mm/L ABG Hemoglobin (12.0-16.0) g/dL ABG Oxyhemoglobin % ABG Carboxyhemoglobin (0.0-1.6) % ABG Methemoglobin % Thony Test O2 Delivery Device Oxygen Flow Rate L Sodium 142 (140-148) mmol/L Potassium 3.4 L (3.6-5.2) mmol/L Chloride 103 (100-108) mmol/L Carbon Dioxide 27 (21-32) mmol/L Anion Gap 15.4 H (5.0-14.0) mmol/L BUN 16 (7-18) mg/dL Creatinine 0.9 (0.6-1.0) mg/dL Est Cr Clr Drug Dosing 45.36 mL/min Estimated GFR (MDRD) > 60 (>60) Glucose 125 H (74-106) mg/dL Lactic Acid 1.3 (0.4-2.0) mmol/L Calcium 9.0 (8.5-10.1) mg/dL Total Bilirubin 0.7 (0.2-1.0) mg/dL AST 15 (15-37) U/L ALT 17 (12-78) U/L Alkaline Phosphatase 56 (46-116) U/L C-Reactive Protein 0.38 H (0.0-0.3) mg/dL Total Protein 6.9 (6.4-8.2) g/dL Albumin 3.4 (3.4-5.0) g/dL Globulin 3.5 (2.3-3.5) g/dL Albumin/Globulin Ratio 1.0 L (1.2-2.2) Vitamin B12 (193-986) pg/ml Folate (8.6-58.9) ng/ml TSH, Ultra Sensitive (0.358-3.740) uIU/mL Urine Color Urine Appearance Urine pH (4.5-8.0) Ur Specific [place] (1.008-1.030) Urine Protein (NEGATIVE) mg/dL Urine Glucose (UA) (NEGATIVE) mg/dL Urine Ketones (NEGATIVE) mg/dL Urine Occult Blood (NEGATIVE) Urine Nitrite (NEGATIVE) Urine Bilirubin (NEGATIVE) Urine Urobilinogen (NORMAL) mg/dL Ur Leukocyte Esterase (NEGATIVE) Urine RBC (0-5) Urine WBC (0-5) Ur Epithelial Cells Amorphous Sediment Urine Bacteria Urine Mucus 08/20/18 08/20/18 08/20/18 Range/Units 09:37 09:44 14:08 WBC (4.5-11.0) K/uL RBC (3.30-5.50) M/uL Hgb (12.0-15.0) g/dL Hct (36.0-48.0) % MCV (80-98) fL MCH (27-31) pg MCHC (32-36) % Plt Count (150-400) K/uL Neut % (Auto) (36-66) % Lymph % (Auto) (24-44) % Upson % (Auto) (2-6) % Eos % (Auto) (2-4) % Baso % (Auto) (0-1) % Puncture Site Lt radial ABG pH 7.318 L (7.350-7.450) ABG pCO2 49.2 H (35.0-42.0) mmHg ABG pO2 46.6 L (75.0-100.0) mmHg ABG HCO3 24.5 (22.0-26.0) mmol/L ABG Total CO2 22.6 (21.0-25.0) mmol/L ABG O2 Saturation 74.2 L (95.0-98.0) % ABG O2 Content 12.9 L (15.0-23.0) %vol ABG Base Excess -1.5 mm/L ABG Hemoglobin 12.6 (12.0-16.0) g/dL ABG Oxyhemoglobin 73.2 % ABG Carboxyhemoglobin 0.5 (0.0-1.6) % ABG Methemoglobin 0.9 % Thony Test Passed O2 Delivery Device Nasal cannula Oxygen Flow Rate L Sodium (140-148) mmol/L Potassium (3.6-5.2) mmol/L Chloride (100-108) mmol/L Carbon Dioxide (21-32) mmol/L Anion Gap (5.0-14.0) mmol/L BUN (7-18) mg/dL Creatinine (0.6-1.0) mg/dL Est Cr Clr Drug Dosing mL/min Estimated GFR (MDRD) (>60) Glucose (74-106) mg/dL Lactic Acid (0.4-2.0) mmol/L Calcium (8.5-10.1) mg/dL Total Bilirubin (0.2-1.0) mg/dL AST (15-37) U/L ALT (12-78) U/L Alkaline Phosphatase (46-116) U/L C-Reactive Protein (0.0-0.3) mg/dL Total Protein (6.4-8.2) g/dL Albumin (3.4-5.0) g/dL Globulin (2.3-3.5) g/dL Albumin/Globulin Ratio (1.2-2.2) Vitamin B12 283 (193-986) pg/ml Folate 13.1 (8.6-58.9) ng/ml TSH, Ultra Sensitive 0.987 (0.358-3.740) uIU/mL Urine Color Yellow Urine Appearance Clear Urine pH 5.0 (4.5-8.0) Ur Specific [place] 1.020 (1.008-1.030) Urine Protein Trace (NEGATIVE) mg/dL Urine Glucose (UA) Negative (NEGATIVE) mg/dL Urine Ketones 50 H (NEGATIVE) mg/dL Urine Occult Blood Negative (NEGATIVE) Urine Nitrite Negative (NEGATIVE) Urine Bilirubin Negative (NEGATIVE) Urine Urobilinogen Normal (NORMAL) mg/dL Ur Leukocyte Esterase Negative (NEGATIVE) Urine RBC Not seen (0-5) Urine WBC Not seen (0-5) Ur Epithelial Cells Few Amorphous Sediment Rare Urine Bacteria Not seen Urine Mucus Rare 08/21/18 08/21/18 Range/Units 04:21 04:21 WBC 7.2 (4.5-11.0) K/uL RBC 3.62 (3.30-5.50) M/uL Hgb 10.1 L D (12.0-15.0) g/dL Hct 34.8 L (36.0-48.0) % MCV 96 (80-98) fL MCH 28 (27-31) pg MCHC 29 L (32-36) % Plt Count 218 (150-400) K/uL Neut % (Auto) (36-66) % Lymph % (Auto) (24-44) % Upson % (Auto) (2-6) % Eos % (Auto) (2-4) % Baso % (Auto) (0-1) % Puncture Site ABG pH (7.350-7.450) ABG pCO2 (35.0-42.0) mmHg ABG pO2 (75.0-100.0) mmHg ABG HCO3 (22.0-26.0) mmol/L ABG Total CO2 (21.0-25.0) mmol/L ABG O2 Saturation (95.0-98.0) % ABG O2 Content (15.0-23.0) %vol ABG Base Excess mm/L ABG Hemoglobin (12.0-16.0) g/dL ABG Oxyhemoglobin % ABG Carboxyhemoglobin (0.0-1.6) % ABG Methemoglobin % Thony Test O2 Delivery Device Oxygen Flow Rate L Sodium 143 (140-148) mmol/L Potassium 3.4 L (3.6-5.2) mmol/L Chloride 108 (100-108) mmol/L Carbon Dioxide 27 (21-32) mmol/L Anion Gap 11.4 (5.0-14.0) mmol/L BUN 9 (7-18) mg/dL Creatinine 0.7 (0.6-1.0) mg/dL Est Cr Clr Drug Dosing 58.33 mL/min Estimated GFR (MDRD) > 60 (>60) Glucose 100 (74-106) mg/dL Lactic Acid (0.4-2.0) mmol/L Calcium 7.9 L (8.5-10.1) mg/dL Total Bilirubin (0.2-1.0) mg/dL AST (15-37) U/L ALT (12-78) U/L Alkaline Phosphatase (46-116) U/L C-Reactive Protein (0.0-0.3) mg/dL Total Protein (6.4-8.2) g/dL Albumin (3.4-5.0) g/dL Globulin (2.3-3.5) g/dL Albumin/Globulin Ratio (1.2-2.2) Vitamin B12 (193-986) pg/ml Folate (8.6-58.9) ng/ml TSH, Ultra Sensitive (0.358-3.740) uIU/mL Urine Color Urine Appearance Urine pH (4.5-8.0) Ur Specific [place] (1.008-1.030) Urine Protein (NEGATIVE) mg/dL Urine Glucose (UA) (NEGATIVE) mg/dL Urine Ketones (NEGATIVE) mg/dL Urine Occult Blood (NEGATIVE) Urine Nitrite (NEGATIVE) Urine Bilirubin (NEGATIVE) Urine Urobilinogen (NORMAL) mg/dL Ur Leukocyte Esterase (NEGATIVE) Urine RBC (0-5) Urine WBC (0-5) Ur Epithelial Cells Amorphous Sediment Urine Bacteria Urine Mucus [place] Results Last 24 Hours: Microbiology 08/20/18 09:25 Aerobic Blood Culture - Preliminary Blood - Arm, Left NO GROWTH AFTER 1 DAY Anaerobic Blood Culture - Preliminary NO GROWTH AFTER 1 DAY Med Orders - Current: Current Medications Acetaminophen (Tylenol) 650 mg PO Q4H PRN PRN Reason: Pain (Mild 1-3)/fever Acetaminophen (Tylenol) 650 mg PO TID [facility] Last Admin: 08/21/18 08:26 Dose: 650 mg Amlodipine Besylate (Norvasc) 10 mg PO DAILY [facility] Last Admin: 08/21/18 08:26 Dose: 10 mg Aspirin (Aspirin) 81 mg PO DAILY [facility] Last Admin: 08/21/18 08:26 Dose: 81 mg Baclofen (Lioresal) 10 mg PO TID [facility] Last Admin: 08/21/18 08:26 Dose: 10 mg Cyanocobalamin (Vitamin B12) 1,000 mcg PO DAILY [facility] Last Admin: 08/21/18 08:26 Dose: 1,000 mcg Enoxaparin Sodium (Lovenox) 40 mg SUBCUT DAILY [facility] Last Admin: 08/21/18 08:27 Dose: 40 mg Famotidine (Pepcid) 20 mg PO BID [facility] Last Admin: 08/21/18 08:26 Dose: 20 mg Gabapentin (Neurontin) 300 mg PO TID [facility] Last Admin: 08/21/18 08:26 Dose: 300 mg Levetiracetam 500 mg/ Sodium (Chloride) 105 mls @ 400 mls/hr IV Q12H [facility] Last Admin: 08/21/18 00:49 Dose: 400 mls/hr Lorazepam (Ativan) 0.5 mg IV Q2H PRN PRN Reason: Seizures Magnesium Hydroxide (Milk Of Magnesia) 30 ml PO Q12H PRN PRN Reason: Constipation Metoprolol Tartrate (Lopressor) 75 mg PO BID [facility] Last Admin: 08/21/18 08:27 Dose: 75 mg Ondansetron HCl (Zofran Odt) 4 mg PO Q6H PRN PRN Reason: Nausea able to take PO Ondansetron HCl (Zofran) 4 mg IV Q6H PRN PRN Reason: Nausea/Vomiting Polyethylene Glycol (Miralax) 17 gm PO DAILY [facility] Last Admin: 08/21/18 08:27 Dose: 17 gm Sodium Chloride (Saline Flush) 10 ml FLUSH ASDIRECTED PRN PRN Reason: Keep Vein Open Last Admin: 08/20/18 09:26 Dose: 10 ml Sucralfate (Carafate) 1 gm PO BID [facility] Last Admin: 08/21/18 08:26 Dose: 1 gm Discontinued Medications Cyanocobalamin (Vitamin B12) 1,000 mcg SUBCUT ONETIME ONE Stop: 08/20/18 15:32 Last Admin: 08/20/18 15:57 Dose: 1,000 mcg Lactated Ringer's (Ringers, Lactated) 1,000 mls @ 125 mls/hr IV ASDIRECTED [facility] Sodium Chloride (Normal Saline) 1,000 mls @ 999 mls/hr IV ASDIRECTED [facility] Last Admin: 08/20/18 09:26 Dose: 999 mls/hr Ceftriaxone Sodium 1 gm/ (Sodium Chloride) 50 mls @ 100 mls/hr IV ONETIME ONE Stop: 08/20/18 10:29 Last Admin: 08/20/18 10:09 Dose: 100 mls/hr Levetiracetam 500 mg/ Sodium (Chloride) 105 mls @ 400 mls/hr IV ONETIME ONE Stop: 08/20/18 12:58 Last Admin: 08/20/18 13:42 Dose: 400 mls/hr Sodium Chloride (Normal Saline) 1,000 mls @ 500 mls/hr IV ASDIRECTED [facility] Stop: 08/20/18 16:01 Potassium Chloride/Sodium Chloride (Normal Saline With 20 Meq Kcl) 1,000 mls @ 125 mls/hr IV ASDIRECTED [facility] Last Admin: 08/20/18 16:00 Dose: 125 mls/hr Sodium Chloride (Normal Saline) 1,000 mls @ 500 mls/hr IV ASDIRECTED [facility] Last Admin: 08/20/18 19:18 Dose: 500 mls/hr Potassium Chloride/Sodium Chloride (Normal Saline With 20 Meq Kcl) 1,000 mls @ 125 mls/hr IV ASDIRECTED [facility] Last Admin: 08/21/18 03:28 Dose: 125 mls/hr Lorazepam (Ativan) Confirm Administered Dose 2 mg .ROUTE .STK-MED ONE Stop: 08/20/18 12:41 Last Admin: 08/20/18 19:39 Dose: Not Given Lorazepam (Ativan) 1 mg IV Q2H PRN PRN Reason: Seizures Potassium Chloride (Klor-Con M20) 40 meq PO ONETIME ONE Stop: 08/21/18 09:01 - Exam Quality Assessment: Supplemental Oxygen, DVT Prophylaxis General: Alert, Cooperative, No Acute Distress. No: Oriented Lungs: Clear to Auscultation, Normal Respiratory Effort Cardiovascular: Regular Rate, Regular Rhythm, No Murmurs GI/Abdominal Exam: Soft, Non-Tender, No Organomegaly, No Distention Extremities: Non-Tender, No Pedal Edema - Problem List Review Problem List Initiated/Reviewed/Updated: Yes - My Orders Last 24 Hours: My Active Orders 08/21/18 09:29 LORazepam [Ativan] 0.5 mg IV Q2H PRN 08/21/18 09:30 Convert IV to Saline Lock [OM.PC] Routine 08/21/18 09:31 POTASSIUM,K [CHEM] Timed 08/21/18 Breakfast Regular Diet [DIET] - Plan Plan:: ASSESSMENT AND PLAN - Seizure - witnessed generalized tonic-clonic seizure. No history of seizures. She is postictal at this time. Head CT unremarkable. Recent MRI was unremarkable. Case was discussed with neurology as mentioned in the history of present illness. -Keppra every 12 hours -Seizure precautions -Lorazepam as needed for breakthrough seizures -MRI with and without gadolinium in the morning Hyperactive delirium - fairly rapid progression over the past couple of weeks. Although rare consideration for paraneoplastic encephalopathy could be considered. 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 No evidence for infection at this time. Evaluation with laboratory studies unremarkable thus far. -paraneoplastic panel pending Dyskinesia - Patient noted to have poorly controlled and possibly involuntary arm movements and leg movements. This has previously been noted in oncology notes but seems to be more intense today than usual per her 's report. -Continue home medications -Additional management as above Hypokalemia - Mild and will be supplemented. Dementia without behavioral disturbance - patient carries a history of very mild dementia but normally is able to communicate and recognize people. Encounter for palliative care - per 's report the patient has had a significant decline in her functional status and quality of life. He is not interested in aggressive interventions at this time. He is interested in trying to manage things locally if at all possible to avoid travel. Maintenance issues - - DVT prophylaxis - enoxaparin - GI prophylaxis - not indicated - Nutrition - clear liquids until more alert - Dangelo catheter - will be placed for intake and output monitoring CODE STATUS - DNR/DNI - discussed with her Admission justification - This patient will be admitted for inpatient services and is medically appropriate meeting medical necessity for inpatient admission as outlined in my documentation. I reasonably expect the patient will require inpatient services that span a period time over 2 midnights. I reasonably expect this patient to be discharged or transferred within 96 hours after admission to the [facility]. Disposition - I would anticipate discharge back to the half-way after the hospital stay Primary care physician - Dr. Rodríguez
[2018-08-21] MEDS: levETIRAcetam 250 MG Tab PO SCH (16:00)
[2018-08-22] MEDS: levETIRAcetam 250 MG Tab PO SCH ×2 (04:34→16:24)
[2018-08-22] MEDS: Famotidine 20 MG Tab PO SCH ×2 (08:29→21:08)
[2018-08-22] MEDS: Gabapentin 300 MG Cap PO SCH ×3 (08:29→21:06)
[2018-08-22] MEDS: Metoprolol Tartrate 25 MG Tab PO SCH ×2 (08:30→21:06)
[2018-08-22] MEDS: Baclofen 10 MG Tab PO SCH ×3 (08:31→21:07)
[2018-08-22] MEDS: Sucralfate 1 GM Tab PO SCH ×2 (08:32→21:07)
[2018-08-22] MEDS: Aspirin 81 MG Tab.Chew PO SCH (08:32)
[2018-08-22] MEDS: Cyanocobalamin (Vitamin B12) 1,000 MCG Tab PO SCH (08:32)
[2018-08-22] MEDS: Acetaminophen 325 MG Tab PO SCH ×3 (08:33→21:08)
[2018-08-22] MEDS: amLODIPine 10 MG Tab PO SCH (08:33)
[2018-08-22] MEDS: Enoxaparin 40 MG/0.4 ML Syringe SUBCUT SCH (08:34)
[2018-08-22] MEDS: Polyethylene Glycol 3350 Powder 17 GM Packet PO SCH (08:35)
--- NOTE | 2018-08-22 10:50 | PCM.PN ---
- General Info Date of Service: 08/22/18 Subjective Update: Ms. Calderon is had no recurrent seizures over the past 36 hours, this morning is more alert and interactive. She is been seen and evaluated by oncology this morning, seizures as well as neurologic findings felt to be secondary to [employer] involvement of her small cell carcinoma versus side effect of recent chemotherapy. No further interventions or treatment of the small cell cancers available at the present time. Discussed these findings with the patient and family, she would like to proceed with comfort cares only and hospice admission. Functional Status: Reports: Pain Controlled - Review of Systems General: Reports: Weakness, Fatigue. Denies: Fever, Chills Pulmonary: Reports: No Symptoms Cardiovascular: Reports: No Symptoms Gastrointestinal: Reports: No Symptoms - Patient Data Vitals - Most Recent: Last Vital Signs Temp 98.8 F 08/22/18 08:00 Pulse 102 H 08/22/18 08:30 Resp 15 08/22/18 08:00 BP 135/81 08/22/18 08:33 Pulse Ox 94 L 08/22/18 08:00 Weight - Most Recent: 146 lb 9.613 oz Lab Results Last 24 Hours: Laboratory Results - last 24 hr 08/22/18 Range/Units 05:03 Potassium 3.9 (3.6-5.2) mmol/L [place] Results Last 24 Hours: Microbiology 08/20/18 09:25 Aerobic Blood Culture - Preliminary Blood - Arm, Left NO GROWTH AFTER 2 DAYS Anaerobic Blood Culture - Preliminary NO GROWTH AFTER 2 DAYS 08/20/18 15:00 Aerobic Blood Culture - Preliminary Blood - Venous - Iv Start NO GROWTH AFTER 1 DAY Anaerobic Blood Culture - Preliminary NO GROWTH AFTER 1 DAY Med Orders - Current: Current Medications Acetaminophen (Tylenol) 650 mg PO Q4H PRN PRN Reason: Pain (Mild 1-3)/fever Acetaminophen (Tylenol) 650 mg PO TID [facility] Last Admin: 08/22/18 08:33 Dose: 650 mg Amlodipine Besylate (Norvasc) 10 mg PO DAILY [facility] Last Admin: 08/22/18 08:33 Dose: 10 mg Aspirin (Aspirin) 81 mg PO DAILY [facility] Last Admin: 08/22/18 08:32 Dose: 81 mg Baclofen (Lioresal) 10 mg PO TID [facility] Last Admin: 08/22/18 08:31 Dose: 10 mg Cyanocobalamin (Vitamin B12) 1,000 mcg PO DAILY [facility] Last Admin: 08/22/18 08:32 Dose: 1,000 mcg Enoxaparin Sodium (Lovenox) 40 mg SUBCUT DAILY [facility] Last Admin: 08/22/18 08:34 Dose: 40 mg Famotidine (Pepcid) 20 mg PO BID [facility] Last Admin: 08/22/18 08:29 Dose: 20 mg Gabapentin (Neurontin) 300 mg PO TID [facility] Last Admin: 08/22/18 08:29 Dose: 300 mg Heparin Sodium (Porcine) (Heparin Lock Flush 100 Units/Ml) 500 units FLUSH ASDIRECTED PRN PRN Reason: port flush Last Admin: 08/22/18 05:21 Dose: 500 units Levetiracetam (Keppra) 500 mg PO Q12H [facility] Last Admin: 08/22/18 04:34 Dose: 500 mg Lorazepam (Ativan) 0.5 mg IV Q2H PRN PRN Reason: Seizures Last Admin: 08/21/18 12:17 Dose: 0.5 mg Magnesium Hydroxide (Milk Of Magnesia) 30 ml PO Q12H PRN PRN Reason: Constipation Metoprolol Tartrate (Lopressor) 75 mg PO BID [facility] Last Admin: 08/22/18 08:30 Dose: 75 mg Ondansetron HCl (Zofran Odt) 4 mg PO Q6H PRN PRN Reason: Nausea able to take PO Ondansetron HCl (Zofran) 4 mg IV Q6H PRN PRN Reason: Nausea/Vomiting Polyethylene Glycol (Miralax) 17 gm PO DAILY [facility] Last Admin: 08/22/18 08:35 Dose: 17 gm Sodium Chloride (Saline Flush) 10 ml FLUSH ASDIRECTED PRN PRN Reason: Keep Vein Open Last Admin: 08/20/18 09:26 Dose: 10 ml Sucralfate (Carafate) 1 gm PO BID [facility] Last Admin: 08/22/18 08:32 Dose: 1 gm Discontinued Medications Cyanocobalamin (Vitamin B12) 1,000 mcg SUBCUT ONETIME ONE Stop: 08/20/18 15:32 Last Admin: 08/20/18 15:57 Dose: 1,000 mcg Heparin Sodium (Porcine) (Heparin Lock Flush 100 Units/Ml) Confirm Administered Dose 500 units .ROUTE .STK-MED ONE Stop: 08/22/18 04:55 Lactated Ringer's (Ringers, Lactated) 1,000 mls @ 125 mls/hr IV ASDIRECTED [facility] Sodium Chloride (Normal Saline) 1,000 mls @ 999 mls/hr IV ASDIRECTED [facility] Last Admin: 08/20/18 09:26 Dose: 999 mls/hr Ceftriaxone Sodium 1 gm/ (Sodium Chloride) 50 mls @ 100 mls/hr IV ONETIME ONE Stop: 08/20/18 10:29 Last Admin: 08/20/18 10:09 Dose: 100 mls/hr Levetiracetam 500 mg/ Sodium (Chloride) 105 mls @ 400 mls/hr IV ONETIME ONE Stop: 08/20/18 12:58 Last Admin: 08/20/18 13:42 Dose: 400 mls/hr Sodium Chloride (Normal Saline) 1,000 mls @ 500 mls/hr IV ASDIRECTED [facility] Stop: 08/20/18 16:01 Levetiracetam 500 mg/ Sodium (Chloride) 105 mls @ 400 mls/hr IV Q12H [facility] Last Admin: 08/21/18 00:49 Dose: 400 mls/hr Potassium Chloride/Sodium Chloride (Normal Saline With 20 Meq Kcl) 1,000 mls @ 125 mls/hr IV ASDIRECTED [facility] Last Admin: 08/20/18 16:00 Dose: 125 mls/hr Sodium Chloride (Normal Saline) 1,000 mls @ 500 mls/hr IV ASDIRECTED [facility] Last Admin: 08/20/18 19:18 Dose: 500 mls/hr Potassium Chloride/Sodium Chloride (Normal Saline With 20 Meq Kcl) 1,000 mls @ 125 mls/hr IV ASDIRECTED [facility] Last Admin: 08/21/18 03:28 Dose: 125 mls/hr Lorazepam (Ativan) Confirm Administered Dose 2 mg .ROUTE .STK-MED ONE Stop: 08/20/18 12:41 Last Admin: 08/20/18 19:39 Dose: Not Given Lorazepam (Ativan) 1 mg IV Q2H PRN PRN Reason: Seizures Potassium Chloride (Klor-Con M20) 40 meq PO ONETIME ONE Stop: 08/21/18 09:01 Last Admin: 08/21/18 10:28 Dose: 40 meq Potassium Chloride (Klor-Con M20) 40 meq PO ONETIME ONE Stop: 08/21/18 12:01 Last Admin: 08/21/18 12:17 Dose: 40 meq - Exam General: Alert, Cooperative. No: Oriented Lungs: Clear to Auscultation, Normal Respiratory Effort Cardiovascular: Regular Rate, Regular Rhythm, No Murmurs GI/Abdominal Exam: Soft, Non-Tender, No Organomegaly, No Distention - Problem List Review Problem List Initiated/Reviewed/Updated: Yes - My Orders Last 24 Hours: My Active Orders 08/21/18 16:00 levETIRAcetam [Keppra] 500 mg PO Q12H 08/22/18 10:44 Consult to Hospice [CONS] Routine 08/22/18 10:45 Insert Urinary Catheter [OM.PC] Q24H Urinary Catheter Assessment [RC] ASDIRECTED Dexamethasone 4 mg IVPUSH Q6H - Plan Plan:: ASSESSMENT AND PLAN - Seizure - witnessed generalized tonic-clonic seizure. Likely secondary to progression of her small cell carcinoma with neurologic involvement -Keppra every 12 hours -Seizure precautions -Lorazepam as needed for breakthrough seizures -Decadron 4 mg IV every 6 hours Hyperactive delirium - improved -paraneoplastic panel pending Dyskinesia - Patient noted to have poorly controlled and possibly involuntary arm movements and leg movements. This has previously been noted in oncology notes but seems to be more intense today than usual per her 's report. Likely secondary to progression of her small cell carcinoma with neurologic involvement versus side effect of recent immunochemotherapy. -Continue home medications -Additional management as above Hypokalemia - Mild and will be supplemented. Dementia without behavioral disturbance - patient carries a history of very mild dementia but normally is able to communicate and recognize people. Encounter for palliative care - per 's report the patient has had a significant decline in her functional status and quality of life. He is not interested in aggressive interventions at this time. He is interested in trying to manage things locally if at all possible to avoid travel. -Hospice consult Maintenance issues - - DVT prophylaxis - enoxaparin - GI prophylaxis - not indicated - Nutrition - clear liquids until more alert - Dangelo catheter - will be placed for intake and output monitoring CODE STATUS - DNR/DNI COMFORT CARES ONLY Admission justification - This patient will be admitted for inpatient services and is medically appropriate meeting medical necessity for inpatient admission as outlined in my documentation. I reasonably expect the patient will require inpatient services that span a period time over 2 midnights. I reasonably expect this patient to be discharged or transferred within 96 hours after admission to the [facility]. Disposition - [facility] stay Primary care physician - Dr. Rodríguez
[2018-08-22] MEDS: Dexamethasone 4 MG/ML SDV IVPUSH SCH ×2 (11:08→16:25)
[2018-08-23] MEDS: Dexamethasone 4 MG/ML SDV IVPUSH SCH ×2 (00:22→05:35)
[2018-08-23] MEDS: levETIRAcetam 250 MG Tab PO SCH (05:36)
[2018-08-23 08:33] VITALS: BP 169/91
[2018-08-23] MEDS: amLODIPine 10 MG Tab PO SCH (08:34)
[2018-08-23] MEDS: Cyanocobalamin (Vitamin B12) 1,000 MCG Tab PO SCH (08:35)
[2018-08-23] MEDS: Metoprolol Tartrate 25 MG Tab PO SCH (08:35)
[2018-08-23] MEDS: Baclofen 10 MG Tab PO SCH (08:35)
[2018-08-23] MEDS: Famotidine 20 MG Tab PO SCH (08:36)
[2018-08-23] MEDS: Sucralfate 1 GM Tab PO SCH (08:36)
[2018-08-23] MEDS: Acetaminophen 325 MG Tab PO SCH (08:37)
[2018-08-23] MEDS: Gabapentin 300 MG Cap PO SCH (08:37)
[2018-08-23] MEDS: Aspirin 81 MG Tab.Chew PO SCH (08:37)
[2018-08-23] MEDS: Enoxaparin 40 MG/0.4 ML Syringe SUBCUT SCH (08:38)
[2018-08-23] MEDS: Polyethylene Glycol 3350 Powder 17 GM Packet PO SCH (08:38)
--- NOTE | 2018-08-23 09:36 | PCM.DCSUM1 ---
Discharge Summary - Hospital Course Brief History: Ms. 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 She was admitted through the emergency department with lethargy secondary to seizure. - Discharge Data Discharge Date: 08/23/18 Discharge Disposition: DC/Tfer to SNF 03 Condition: Poor - Discharge Diagnosis/Problem(s) (1) Small cell lung cancer SNOMED Code(s): 293853944 ICD Code: C34.90 - MALIGNANT NEOPLASM OF UNSP PART OF UNSP BRONCHUS OR LUNG Status: Acute Current Visit: Yes (2) Palliative care status SNOMED Code(s): 628248186 ICD Code: Z51.5 - ENCOUNTER FOR PALLIATIVE CARE Status: Acute Current Visit: Yes (3) Seizure SNOMED Code(s): 43406779 ICD Code: R56.9 - UNSPECIFIED CONVULSIONS Status: Acute Current Visit: Yes (4) Dyskinesia SNOMED Code(s): 2529847 ICD Code: G24.9 - DYSTONIA, UNSPECIFIED Status: Acute Current Visit: Yes (5) Type 2 diabetes mellitus SNOMED Code(s): 47375158 ICD Code: E11.9 - TYPE 2 DIABETES MELLITUS WITHOUT COMPLICATIONS Status: Chronic Current Visit: No - Patient Summary/Data Consults: Consultations 08/22/18 10:44 Consult to Hospice [CONS] Routine Comment: Physician Instructions: Reason for Consult: Metastatic small cell cancer of the lung 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 I am unable to get any history because of confusion. History is gathered from emergency room personnel and her . [facility] and emergency room staff have reported progressive confusion over the past 2-3 weeks. They say that normally she can have a conversation and is able to greet staff members by name. She has declined fairly rapidly. They have noticed an increase in difficulty with her dyskinesia with increasing upper and lower limb movements. They have not noticed any fevers but she did have a recent urinary tract infection which has been treated with ciprofloxacin. She had been complaining of a left frontal headache. She is unable to tell me if she has a headache today. This morning nursing staff at the skilled nursing noted she was very lethargic and even more confused than usual so she was sent to the hospital for evaluation. 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 He said that things had been going fairly well up until about 3 weeks ago. Workup in the emergency room initially was fairly reassuring. There is no evidence for infection. She was mildly hypoxic. There was significant motion artifact on the first head CT but we were able to get a second one after her seizure in the emergency room because she was very lethargic afterwards. Again no acute intracranial pathology was identified. I did discuss the case with Dr. Randolph with neurology in [place]. He agreed with the Keppra loading and seizure management with this drug. He recommended a variety of laboratory tests to help workup her encephalopathy. She will be admitted to the intensive care unit for further management. After admission she was continued on Keppra for management of seizures and had no further seizure activity noted during her hospitalization. On the day after admission MRI with and without contrast was attempted but was unsuccessful because of patient movement. She was seen the following day by her oncologist who felt that the recent neurologic symptoms as well as seizures were likely secondary to progression of her small cell lung cancer versus side effect of her immunochemotherapy. Is felt that there were no further good options for ongoing management of her cancer. Decision was made to place her on a trial of dexamethasone to see if this provided any benefit in her neurologic symptoms. After discussion with patient and family decision was made to proceed with comfort cares only and hospice admission after discharge from the hospital. Hospice staff did come to the hospital discussed hospice program with the patient and her family. She will be discharged back to the skilled nursing today and will be admitted to hospice after discharge. Activity will be as tolerated and she will resume her usual diet. She will be kept on Keppra 500 mg twice daily and will bleed placed on dexamethasone 4 mg by mouth twice daily for the next 6 days. If the dexamethasone seems to provide some benefit as far as improvement in neurologic symptoms and will be decreased in dose but continued. If there are no improvement in symptoms with the dexamethasone and will be discontinued after 6 days. - Patient Instructions Diet: Usual Diet as Tolerated Activity: As Tolerated Other/Special Instructions: Hospice admission after discharge from the hospital. - Discharge Plan *PRESCRIPTION DRUG MONITORING PROGRAM REVIEWED*: Not Applicable *COPY OF PRESCRIPTION DRUG MONITORING REPORT IN PATIENT DANDY: Not Applicable Prescriptions/Med Rec: Dexamethasone 4 mg PO BID #12 tablet levETIRAcetam [Keppra] 500 mg PO BID #60 tab Home Medications: Home Meds Aspirin 81 mg PO DAILY 05/09/16 [History] Cyanocobalamin (Vitamin B-12) [B-12] 1,000 mcg PO DAILY 05/09/16 [History] Metoprolol Tartrate 75 mg PO BID 05/09/16 [History] amLODIPine Besylate [Amlodipine Besylate] 10 mg PO DAILY 05/09/16 [History] Acetaminophen [Acetaminophen 8 Hour] 650 mg PO TID 08/20/18 [History] Baclofen 10 mg PO TID 08/20/18 [History] Famotidine 20 mg PO BID 08/20/18 [History] Gabapentin [Neurontin] 300 mg PO TID 08/20/18 [History] Lactose-Reduced Food [Ensure Clear] 1 carton PO BID 08/20/18 [History] Ondansetron [Zofran ODT] 4 mg PO DAILY 08/20/18 [History] Polyethylene Glycol 3350 [MiraLAX] 17 gm PO DAILY 08/20/18 [History] Sucralfate 1 gm PO BID 08/20/18 [History] Dexamethasone 4 mg PO BID #12 tablet 08/23/18 [Rx] levETIRAcetam [Keppra] 500 mg PO BID #60 tab 08/23/18 [Rx] Referrals: Keegan Rodríguez MD [Primary Care Provider] - - Discharge Summary/Plan Comment DC Time >30 min.: No - Patient Data Vitals - Most Recent: Last Vital Signs Temp 96.8 F 08/23/18 08:00 Pulse 89 08/23/18 08:35 Resp 19 08/23/18 08:00 BP 169/91 H 08/23/18 08:35 Pulse Ox 96 08/23/18 08:00 Weight - Most Recent: 146 lb 9.613 oz I&O - Last 24 hours: Intake & Output 08/22/18 08/23/18 08/23/18 22:59 06:59 14:59 Intake Total 840 150 Output Total 325 Balance 840 -175 DARYN Results - Last 24 hrs: Microbiology 08/20/18 09:25 Aerobic Blood Culture - Preliminary Blood - Arm, Left NO GROWTH AFTER 3 DAYS Anaerobic Blood Culture - Preliminary NO GROWTH AFTER 3 DAYS 08/20/18 15:00 Aerobic Blood Culture - Preliminary Blood - Venous - Iv Start NO GROWTH AFTER 2 DAYS Anaerobic Blood Culture - Preliminary NO GROWTH AFTER 2 DAYS Med Orders - Current: Current Medications Acetaminophen (Tylenol) 650 mg PO Q4H PRN PRN Reason: Pain (Mild 1-3)/fever Acetaminophen (Tylenol) 650 mg PO TID [facility] Last Admin: 08/23/18 08:37 Dose: 650 mg Amlodipine Besylate (Norvasc) 10 mg PO DAILY [facility] Last Admin: 08/23/18 08:34 Dose: 10 mg Aspirin (Aspirin) 81 mg PO DAILY [facility] Last Admin: 08/23/18 08:37 Dose: 81 mg Baclofen (Lioresal) 10 mg PO TID [facility] Last Admin: 08/23/18 08:35 Dose: 10 mg Cyanocobalamin (Vitamin B12) 1,000 mcg PO DAILY [facility] Last Admin: 08/23/18 08:35 Dose: 1,000 mcg Dexamethasone (Dexamethasone) 4 mg IVPUSH Q6H [facility] Last Admin: 08/23/18 05:35 Dose: 4 mg Enoxaparin Sodium (Lovenox) 40 mg SUBCUT DAILY [facility] Last Admin: 08/23/18 08:38 Dose: 40 mg Famotidine (Pepcid) 20 mg PO BID [facility] Last Admin: 08/23/18 08:36 Dose: 20 mg Gabapentin (Neurontin) 300 mg PO TID [facility] Last Admin: 08/23/18 08:37 Dose: 300 mg Heparin Sodium (Porcine) (Heparin Lock Flush 100 Units/Ml) 500 units FLUSH ASDIRECTED PRN PRN Reason: port flush Last Admin: 08/23/18 05:42 Dose: 500 units Levetiracetam (Keppra) 500 mg PO Q12H [facility] Last Admin: 08/23/18 05:36 Dose: 500 mg Lorazepam (Ativan) 0.5 mg IV Q2H PRN PRN Reason: Seizures Last Admin: 08/21/18 12:17 Dose: 0.5 mg Magnesium Hydroxide (Milk Of Magnesia) 30 ml PO Q12H PRN PRN Reason: Constipation Metoprolol Tartrate (Lopressor) 75 mg PO BID [facility] Last Admin: 08/23/18 08:35 Dose: 75 mg Ondansetron HCl (Zofran Odt) 4 mg PO Q6H PRN PRN Reason: Nausea able to take PO Ondansetron HCl (Zofran) 4 mg IV Q6H PRN PRN Reason: Nausea/Vomiting Polyethylene Glycol (Miralax) 17 gm PO DAILY [facility] Last Admin: 08/23/18 08:38 Dose: 17 gm Sodium Chloride (Saline Flush) 10 ml FLUSH ASDIRECTED PRN PRN Reason: Keep Vein Open Last Admin: 08/20/18 09:26 Dose: 10 ml Sucralfate (Carafate) 1 gm PO BID [facility] Last Admin: 08/23/18 08:36 Dose: 1 gm Discontinued Medications Cyanocobalamin (Vitamin B12) 1,000 mcg SUBCUT ONETIME ONE Stop: 08/20/18 15:32 Last Admin: 08/20/18 15:57 Dose: 1,000 mcg Lactated Ringer's (Ringers, Lactated) 1,000 mls @ 125 mls/hr IV ASDIRECTED [facility] Sodium Chloride (Normal Saline) 1,000 mls @ 999 mls/hr IV ASDIRECTED [facility] Last Admin: 08/20/18 09:26 Dose: 999 mls/hr Ceftriaxone Sodium 1 gm/ (Sodium Chloride) 50 mls @ 100 mls/hr IV ONETIME ONE Stop: 08/20/18 10:29 Last Admin: 08/20/18 10:09 Dose: 100 mls/hr Levetiracetam 500 mg/ Sodium (Chloride) 105 mls @ 400 mls/hr IV ONETIME ONE Stop: 08/20/18 12:58 Last Admin: 08/20/18 13:42 Dose: 400 mls/hr Sodium Chloride (Normal Saline) 1,000 mls @ 500 mls/hr IV ASDIRECTED [facility] Stop: 08/20/18 16:01 Levetiracetam 500 mg/ Sodium (Chloride) 105 mls @ 400 mls/hr IV Q12H [facility] Last Admin: 08/21/18 00:49 Dose: 400 mls/hr Potassium Chloride/Sodium Chloride (Normal Saline With 20 Meq Kcl) 1,000 mls @ 125 mls/hr IV ASDIRECTED [facility] Last Admin: 08/20/18 16:00 Dose: 125 mls/hr Sodium Chloride (Normal Saline) 1,000 mls @ 500 mls/hr IV ASDIRECTED [facility] Last Admin: 08/20/18 19:18 Dose: 500 mls/hr Potassium Chloride/Sodium Chloride (Normal Saline With 20 Meq Kcl) 1,000 mls @ 125 mls/hr IV ASDIRECTED PRETTY Last Admin: 08/21/18 03:28 Dose: 125 mls/hr Lorazepam (Ativan) Confirm Administered Dose 2 mg .ROUTE .STK-MED ONE Stop: 08/20/18 12:41 Last Admin: 08/20/18 19:39 Dose: Not Given Lorazepam (Ativan) 1 mg IV Q2H PRN PRN Reason: Seizures Potassium Chloride (Klor-Con M20) 40 meq PO ONETIME ONE Stop: 08/21/18 09:01 Last Admin: 08/21/18 10:28 Dose: 40 meq Potassium Chloride (Klor-Con M20) 40 meq PO ONETIME ONE Stop: 08/21/18 12:01 Last Admin: 08/21/18 12:17 Dose: 40 meq - Exam General: Reports: Alert, Cooperative, No Acute Distress. 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
== END 2018-08-23 11:14 | disposition hospice, inpatient (51) | DRG 181 ==
LOC: JP.ED 08:28 → JP.ICU 14:11
PROVIDERS: ADMIT Internal Medicine; ATTEND Hospitalist
DX: C34.90 Malignant neoplasm of unspecified part of unspecified bronchus or lung (principal); R41.0 Disorientation, unspecified; F05 Delirium due to known physiological condition; C79.40 Secondary malignant neoplasm of unspecified part of nervous system; Z51.5 Encounter for palliative care; Z66 Do not resuscitate; R56.9 Unspecified convulsions; I10 Essential (primary) hypertension; E11.9 Type 2 diabetes mellitus without complications; G24.9 Dystonia, unspecified; T45.1X5A Adverse effect of antineoplastic and immunosuppressive drugs, initial encounter; Y92.129 Unspecified place in nursing home as the place of occurrence of the external cause; F03.90 Unspecified dementia, unspecified severity, without behavioral disturbance, psychotic disturbance, mood disturbance, and anxiety; E87.6 Hypokalemia; R09.02 Hypoxemia; G13.0 Paraneoplastic neuromyopathy and neuropathy; E78.00 Pure hypercholesterolemia, unspecified; K21.9 Gastro-esophageal reflux disease without esophagitis; M25.511 Pain in right shoulder; G89.29 Other chronic pain; Z92.21 Personal history of antineoplastic chemotherapy; Z92.3 Personal history of irradiation; Z87.440 Personal history of urinary (tract) infections; H54.7 Unspecified visual loss; Z79.82 Long term (current) use of aspirin; R32 Unspecified urinary incontinence
CPT/HCPCS: 36415; 36600; 51702; 70450; 71045; 80048; 80053; 81001; 82607; 82746; 82803; 83605; 84132; 84443; 85025; 85027; 86140; 87040; 96361; 96365; 96367; 99285; 99285-25; A9270-GY; J0696; J1100; J1642; J1650; J1953; J2060; J3420; J3480; J7030; J7050